=== PATIENT | male | born 1975 | race Caucasian/White ===

== ENCOUNTER 2021-10-07 22:57 | Inpatient (IN) | payer OTHER ==
[~2021-10-07] VITALS: Ht 177.8 cm; Wt 82.6 kg
[2021-10-07] MEDS ORDERED: PANT40TA2 PO (23:25)
--- NOTE | 2021-10-07 23:28 | NUR ---
pt in room c/o vomiting blood.
--- NOTE | 2021-10-07 23:29 | NUR ---
Dr. Lackey at bedside for MSE.
[2021-10-07] MEDS ORDERED: ONDANSETRON 4 MG/2 ML VIAL IV ONE (23:45)
[2021-10-07] MEDS ORDERED: HYDROMORPHONE 1 MG/1 ML DISP.SYRIN IV ONE (23:45)
[2021-10-07] MEDS ORDERED: PANTOPRAZOLE SODIUM IV 80 MG in IV DEXTROSE 5% 100 ML IV ONE (23:45)
[2021-10-07] MEDS ORDERED: LORAZEPAM 2 MG/1 ML VIAL IV ONE (23:45)
[2021-10-07] MEDS ORDERED: IV NORMAL SALINE 1000 ML BAG IV ONE (23:45)
[2021-10-08 00:03] LABS: *BILIRUBIN,URIN NEGATIVE (NEGATIVE); *BLOOD, URINE NEGATIVE (NEGATIVE); *CLARITY,URINE CLEAR (CLEAR); *COLOR,URINE YELLOW (YELLOW); *KETONES,URINE NEGATIVE (NEGATIVE); *UROBILINOGEN,URINE 0.2 E.U./dl (NORMAL); LEUKOCYTE ESTERASE ,URINE NEGATIVE (NEGATIVE); NITRITE, URINE NEGATIVE (NEGATIVE); PH,URINE 5.5 (5.0-8.0); UGLUCOSE NEGATIVE (NEGATIVE)
[2021-10-08] MEDS ORDERED: HYDROMORPHONE 1 MG/1 ML DISP.SYRIN ONE (00:06)
[2021-10-08] MEDS ORDERED: LORAZEPAM 2 MG/1 ML VIAL ONE (00:07)
[2021-10-08] MEDS ORDERED: PANTOPRAZOLE SODIUM 40 MG VIAL ONE (00:08)
[2021-10-08] MEDS ORDERED: ONDANSETRON 4 MG/2 ML VIAL ONE (00:08)
[2021-10-08 00:10] LABS: HEMATOCRIT 45.3 % (36.7-47.1); MEAN CORPUSCULAR HEMOGLOBIN 30.5 uug (23.8-33.4); MEAN CORPUSCULAR VOLUME 86.6 fL (73.0-96.2); PLATELET COUNT (AUTO) 228 K/uL (152-348)
[2021-10-08 00:32] LABS: POTASSIUM 3.9 mmol/L (3.5-5.1)
[2021-10-08 00:44] LABS: BILIRUBIN,DIRECT 0.1 mg/dL (0.0-0.2); BILIRUBIN,TOTAL 0.3 mg/dL (0.2-1.0); TOTAL PROTEIN, SERUM 7.5 g/dL (6.4-8.2)
[2021-10-08 01:04] LABS: *OCCULT BLOOD STOOL POSITIVE (NEGATIVE)
--- NOTE | 2021-10-08 02:30 | NUR ---
Insurance company was contacted, pt is capped for [place] pres.
--- NOTE | 2021-10-08 02:50 | NUR ---
pt currently resting with eyes closed when i called his name he awakens easily he denies any pain.
--- NOTE | 2021-10-08 05:38 | NUR ---
Still waiting to hear from insurance.
--- NOTE | 2021-10-08 06:24 | NUR ---
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
--- NOTE | 2021-10-08 06:26 | NUR ---
call placed to [employer].
--- NOTE | 2021-10-08 06:29 | NUR ---
updated pt that he is approved to stay here for observation status.
[2021-10-08] MEDS ORDERED: NEOMY/BACITRA/POLYMYXIN B OINT UD PACKET TP ONE (08:09)
--- NOTE | 2021-10-08 08:35 | NUR ---
REPOT GIVEN TO [facility]. PT WAS TRANSFERED TO [facility] ROOM #320.
--- NOTE | 2021-10-08 09:10 | NUR ---
Dr. Tutu Morejon in to see pt.
--- NOTE | 2021-10-08 10:00 | NUR ---
Admitted patient from ER with admitting diagnosis of hematemesis and gastric ulcer. Alert and oriented x 4. On room air. GI consult pending. Pt aware. Complaint of mild pain in abdomen. Administered ordered PRN medication. Last bowel movement last night, black in color. Patient reports last emesis was red in color. Safety measures initiated. Call light within reach.
[2021-10-08] MEDS ORDERED: ONDANSETRON 4 MG/2 ML VIAL IV PRN (10:30)
[2021-10-08 11:00] VITALS: BP 120/51
[2021-10-08] MEDS: IV NS 1000 ML 1,000 ML IV PRN (12:21)
[2021-10-08] MEDS: PANTOPRAZOLE SODIUM 40 MG VIAL IV SCH ×2 (12:21→20:10)
[2021-10-08] MEDS ORDERED: HYDROCODONE/APAP 5-325MG TABLET PO PRN (15:15)
--- NOTE | 2021-10-08 15:30 | NUR ---
Patient complained of severe abdominal pain. Notified Dr Morejon. [place] ordered administered.
[2021-10-08 16:36] VITALS: BP 112/70
[2021-10-08] MEDS ORDERED: ACETAMINOPHEN 325 MG TABLET PO PRN (18:15)
--- NOTE | 2021-10-08 19:15 | NUR ---
Received a call from Dr. Nickerson. States to continue observation for blood in emesis and stool. If nursing is able to visualize blood in emesis to report to him. Also, request for records from [facility] hospitalization. Patient made aware. [facility]orsed to [facility] shift [facility].
--- NOTE | 2021-10-08 19:30 | NUR ---
Received patient lying in bed. AAOx4. In no acute distress. Denies any pain. Complained of vomiting small amount with scant amount of blood noted and feels nauseated. Will provide Zofran PRN per order. Denies any SOB. IV site on Left AC intact and patent. IVF infusing. Other needs assessed and attended to. Safety measure initiated and call light within reached.
[2021-10-08 22:05] VITALS: BP 118/63
[2021-10-09] MEDS: IV NS 1000 ML 1,000 ML IV PRN (03:58)
[2021-10-09 04:00] VITALS: BP 101/62
--- NOTE | 2021-10-09 05:52 | NUR ---
Patient slept through out the night. In no acute distress. Denies any pain or SOB. No further complain of N/V. No hematemesis. IV site on Left AC intact and patent. IVF infusing. Needs attended to and met. Safety measure maintained and call light within reached.
[2021-10-09 06:55] LABS: HEMATOCRIT 43.5 % (36.7-47.1); MEAN CORPUSCULAR HEMOGLOBIN 29.9 uug (23.8-33.4); PLATELET COUNT (AUTO) 206 K/uL (152-348)
[2021-10-09 07:12] LABS: CREATININE 1.2 mg/dL (0.6-1.3); MAGNESIUM 2.1 mg/dL (1.8-2.4); PHOSPHOROUS 4.3 mg/dL (2.5-4.9); POTASSIUM 4.4 mmol/L (3.5-5.1)
[2021-10-09 07:41] LABS: THYROID STIMULATING HORMONE 2.348 mIU/mL (0.358-3.740)
[2021-10-09] MEDS: PANTOPRAZOLE SODIUM 40 MG VIAL IV SCH (08:45)
--- NOTE | 2021-10-09 10:54 | NUR ---
Pt is a/o x 4, complaints of abdominal cramping still present. Pt is passing gas but no bowel movement yet. Educated pt to not flush any vomiting, spitting up or BM until assessed by nursing staff. Medical records obtained from [facility] and has been notified.
[2021-10-09 12:00] VITALS: BP 117/64
--- NOTE | 2021-10-09 13:12 | NUR ---
Pt spoke with Dr. Esposito via telephone. Pt voiced he wanted to leave the hospital. Dr. Morejon notified. Pt picked up by , IV and ID removed. No BM, No vomiting on shift. No signs of acute distress noted. Pt is ambulatory. alert and oriented x 4. AMA signed.
== END 2021-10-09 13:10 | disposition left against medical advice (07) | DRG 241 ==
LOC: ER 23:08 → MEDSURG3 10-08 08:32
DX: K25.4 Chronic or unspecified gastric ulcer with hemorrhage (principal); F17.210 Nicotine dependence, cigarettes, uncomplicated; K29.70 Gastritis, unspecified, without bleeding; Z20.822 Contact with and (suspected) exposure to COVID-19
CPT/HCPCS: 36415; 71045; 83690; 83735; 84100; 84443; 85025; 85730; 86850; 86900; 86901; A4663; C9113; G0378; J1170; J2060; J2405; J7040